=== PATIENT | female | born 1955 | race African-American/Black ===

== ENCOUNTER 2018-11-09 09:42 | Inpatient (IN) | payer MEDICAID ==
[~2018-11-09] VITALS: Ht 152.4 cm; Wt 75.3 kg
[2018-11-09] MEDS ORDERED: MORPHINE SULFATE 4 MG/ML CPJ (NOT FOR IM USE) IV STA (10:25)
[2018-11-09] MEDS ORDERED: ONDANSETRON HCL 4MG/2ML INJ IV STA (10:25)
[2018-11-09 10:54] LABS: BASOPHILS % 0.5 % (0.0-2.0); EOSINOPHILS % 1.6 % (0.0-5.0); HEMATOCRIT. 44.8 % (36.0-48.0); HEMOGLOBIN. 14.2 g/dL (12.0-16.0); LYMPHOCYTES % 22.9 % (20.0-50.0); MEAN CORPUSCULAR HEMOGLOBIN 25.3 pg (28.0-32.0); MEAN CORPUSCULAR VOLUME 79.9 fL (81.0-99.0); MEAN PLATELET VOLUME 8.4 fl (7.4-10.4); MONOCYTES % 5.7 % (2.0-8.0); NEUTROPHILS % 69.3 % (40.0-76.0); PLATELET 349 x1000/uL (130-400); RED BLOOD CELL COUNT 5.61 mill/uL (4.2-5.4); RED CELL DISTRIBUTION WIDTH 15.6 % (11.6-14.6)
[2018-11-09 10:57] LABS: CHLORIDE 95 mEq/L (98-107)
[2018-11-09 10:58] LABS: INR 1.1; PROTHROMBIN TIME 11.1 sec (9.6-11.0)
[2018-11-09] MEDS ORDERED: DIPHENHYDRAMINE 50MG CAPSULE PO ONE (11:00)
[2018-11-09] MEDS ORDERED: IOHEXOL-300 100 ML BOTTLE ONE (12:25)
[2018-11-09 14:09] LABS: CLARITY URINE CLEAR (CLEAR); COLOR URINE YELLOW (YELLOW); KETONES URINE TRACE (NEGATIVE); LEUKOCYTE ESTERASE URINE NEGATIVE (NEGATIVE); NITRITE URINE NEGATIVE (NEGATIVE); OCCULT BLOOD URINE NEGATIVE (NEGATIVE); PROTEIN URINE NEGATIVE (NEGATIVE); SPECIFIC GRAVITY URINE 1.062 (1.005-1.030); UROBILINOGEN URINE 0.2 E.U./dL (0.2-1.0)
[2018-11-09] MEDS ORDERED: ASPIRIN 325MG EC TABLET PO ONE (14:30)
[2018-11-09] MEDS ORDERED: MORPHINE SULFATE 4 MG/ML CPJ (NOT FOR IM USE) IV ONE (16:30)
[2018-11-09] MEDS ORDERED: ONDANSETRON HCL 4MG/2ML INJ IV ONE (16:30)
[2018-11-09] MEDS ORDERED: MORPHINE SULFATE 2 MG/ML CPJ (NOT FOR IM USE) IV PRN (18:30)
[2018-11-09 18:44] VITALS: BP 132/76
[2018-11-09] MEDS ORDERED: DEXTROSE 50% WATER 50ML SYRINGE IV PRN (19:15)
[2018-11-09 20:00] VITALS: BP 159/75
[2018-11-09] MEDS: FOLIC ACID 1 MG, THIAMINE HCL 100 MG, MVI, ADULT NO.1 10 ML in DEXTROSE 5% WATER 1,000 ML IV SCH ×4 (20:54)
[2018-11-09] MEDS: BLOOD SUGAR DIAGNOSTIC STRIP TEST SCH (20:55)
[2018-11-09] MEDS: INSULIN LISPRO 100 UNITS/ML SUBCUT SCH (20:56)
[2018-11-09] MEDS: MORPHINE SULFATE 2 MG/ML CPJ (NOT FOR IM USE) IV PRN (23:57)
[2018-11-10 00:30] VITALS: BP 178/73
[2018-11-10] MEDS: CLONIDINE 0.1MG TABLET PO PRN (01:04)
[2018-11-10] MEDS: MORPHINE SULFATE 2 MG/ML CPJ (NOT FOR IM USE) IV PRN ×3 (03:57→22:40)
[2018-11-10 04:00] VITALS: BP 183/74
[2018-11-10] MEDS: BLOOD SUGAR DIAGNOSTIC STRIP TEST SCH ×4 (06:37→21:10)
[2018-11-10] MEDS: INSULIN LISPRO 100 UNITS/ML SUBCUT SCH ×4 (06:37→21:00)
[2018-11-10] MEDS: ONDANSETRON HCL 4MG/2ML INJ IV PRN ×2 (06:37→21:54)
[2018-11-10 07:44] LABS: HEMATOCRIT 43.6 % (36.0-48.0); MEAN CORPUSCULAR HEMOGLOBIN 25.7 pg (28.0-32.0); PLATELET 321 x1000/uL (130-400); RED BLOOD CELL COUNT 5.45 mill/uL (4.2-5.4); RED CELL DISTRIBUTION WIDTH 15.5 % (11.6-14.6)
[2018-11-10 08:00] VITALS: BP 129/81
[2018-11-10] MEDS ORDERED: DEXT 5%/0.45% NACL KCL 10MEQ/L 1,000 ML IV SCH (08:00)
[2018-11-10] MEDS: METOPROLOL TARTRATE 50MG TABLET PO SCH ×2 (08:05→21:20)
[2018-11-10 08:12] LABS: CHLORIDE 96 mEq/L (98-107)
[2018-11-10] MEDS ORDERED: DEXTROSE 50% WATER 50ML SYRINGE IV PRN (08:15)
[2018-11-10 08:31] LABS: AMYLASE 89 IU/L (25-115)
[2018-11-10] MEDS: INSULIN GLARGINE UD 100 UNITS/ML SYR SUBCUT SCH ×2 (11:19→21:17)
[2018-11-10] MEDS ORDERED: BLOOD SUGAR DIAGNOSTIC STRIP TEST SCH (11:45)
[2018-11-10 12:00] VITALS: BP 167/82
[2018-11-10] MEDS: SODIUM CHLORIDE 0.9% 1,000 ML IV SCH ×2 (12:49→18:15)
[2018-11-10 13:41] LABS: *AMPHETAMINES SCREEN URINE NEGATIVE (NEGATIVE); *BARBITURATES SCREEN URINE NEGATIVE (NEGATIVE)
[2018-11-10 13:43] LABS: *COCAINE SCREEN URINE NEGATIVE (NEGATIVE); CANNABINOID URINE SCREEN NEGATIVE (NEGATIVE); METHADONE URINE SCREEN NEGATIVE (NEGATIVE); OPIATES URINE SCREEN PRESUMTIVE POSITIVE (NEGATIVE); PHENCYCLIDINE URINE SCREEN NEGATIVE (NEGATIVE)
[2018-11-10 13:53] LABS: *BENZODIAZEPINES SCREEN URINE NEGATIVE (NEGATIVE)
[2018-11-10 16:00] VITALS: BP 175/65
[2018-11-10 20:00] VITALS: BP 180/70
[2018-11-10] MEDS: FOLIC ACID 1 MG, THIAMINE HCL 100 MG, MVI, ADULT NO.1 10 ML in DEXTROSE 5% WATER 1,000 ML IV SCH ×4 (21:10)
[2018-11-10] MEDS ORDERED: METO-539 MT (22:51)
[2018-11-10] MEDS ORDERED: METF-815 MT (22:51)
[2018-11-10] MEDS ORDERED: CLON-457 MT (22:51)
[2018-11-10] MEDS ORDERED: DORZ10DR18 OP (22:51)
[2018-11-10] MEDS ORDERED: LATA7.5D OP (22:51)
[2018-11-11 00:18] VITALS: BP 146/85
[2018-11-11] MEDS ORDERED: DOCU-150 MT (03:10)
[2018-11-11] MEDS ORDERED: LISI1TAB9 MT (03:10)
[2018-11-11] MEDS ORDERED: ATOR40TA70 MT (03:10)
[2018-11-11] MEDS ORDERED: ASPI-986 MT (03:10)
[2018-11-11] MEDS ORDERED: ALBU18HF2 INH (03:10)
[2018-11-11] MEDS ORDERED: AMLO10TA80 MT (03:10)
[2018-11-11] MEDS ORDERED: GABA-531 MT (03:10)
[2018-11-11] MEDS ORDERED: MELO-106 MT (03:12)
[2018-11-11] MEDS ORDERED: PANT40TA4 MT (03:13)
[2018-11-11] MEDS: SODIUM CHLORIDE 0.9% 1,000 ML IV SCH ×2 (04:15→14:15)
[2018-11-11] MEDS: CLONIDINE 0.1MG TABLET PO PRN (04:19)
[2018-11-11 04:31] VITALS: BP 161/76
[2018-11-11] MEDS: BLOOD SUGAR DIAGNOSTIC STRIP TEST SCH ×4 (06:03→21:51)
[2018-11-11] MEDS: INSULIN LISPRO 100 UNITS/ML SUBCUT SCH ×4 (06:14→21:00)
[2018-11-11 07:18] LABS: BASOPHILS % 0.2 % (0.0-2.0); EOSINOPHILS % 1.4 % (0.0-5.0); HEMATOCRIT. 40.1 % (36.0-48.0); HEMOGLOBIN. 12.7 g/dL (12.0-16.0); LYMPHOCYTES % 14.4 % (20.0-50.0); MEAN CORPUSCULAR HEMOGLOBIN 25.5 pg (28.0-32.0); MEAN CORPUSCULAR VOLUME 80.4 fL (81.0-99.0); MONOCYTES % 8.9 % (2.0-8.0); NEUTROPHILS % 75.1 % (40.0-76.0); PLATELET 274 x1000/uL (130-400); RED BLOOD CELL COUNT 4.99 mill/uL (4.2-5.4); RED CELL DISTRIBUTION WIDTH 15.7 % (11.6-14.6)
[2018-11-11 07:35] LABS: CHLORIDE 98 mEq/L (98-107)
[2018-11-11 07:42] LABS: AMYLASE 43 IU/L (25-115)
[2018-11-11 08:00] VITALS: BP 117/66
[2018-11-11] MEDS: METOPROLOL TARTRATE 50MG TABLET PO SCH ×2 (09:48→21:54)
[2018-11-11] MEDS: INSULIN GLARGINE UD 100 UNITS/ML SYR SUBCUT SCH ×2 (09:50→22:00)
[2018-11-11 12:00] VITALS: BP 130/67
[2018-11-11 16:00] VITALS: BP 150/62
[2018-11-11 20:00] VITALS: BP 140/90
[2018-11-11] MEDS: FOLIC ACID 1 MG, THIAMINE HCL 100 MG, MVI, ADULT NO.1 10 ML in DEXTROSE 5% WATER 1,000 ML IV SCH ×4 (20:00)
[2018-11-12] VITALS: BP 124/52
[2018-11-12] MEDS: SODIUM CHLORIDE 0.9% 1,000 ML IV SCH ×2 (00:15→10:15)
[2018-11-12 04:00] VITALS: BP 119/63
[2018-11-12] MEDS: INSULIN LISPRO 100 UNITS/ML SUBCUT SCH ×3 (06:36→17:38)
[2018-11-12] MEDS: BLOOD SUGAR DIAGNOSTIC STRIP TEST SCH ×3 (06:36→17:26)
[2018-11-12 08:00] VITALS: BP_SYST 117; BP_SYST 194; BP_DIAS 63; BP_DIAS 66
[2018-11-12] MEDS: METOPROLOL TARTRATE 50MG TABLET PO SCH (09:12)
[2018-11-12] MEDS: INSULIN GLARGINE UD 100 UNITS/ML SYR SUBCUT SCH (09:22)
[2018-11-12 12:00] VITALS: BP 140/58
[2018-11-12 14:45] VITALS: BP 137/62
== END 2018-11-12 18:42 | disposition home or self-care (01) ==
LOC: ER 09:42 → 5WST 15:34 → ENRESERV 17:02 → 5WST 19:37
PROVIDERS: ADMIT Internal Medicine; ATTEND Internal Medicine
DX: K80.20 Calculus of gallbladder without cholecystitis without obstruction (principal); K85.10 Biliary acute pancreatitis without necrosis or infection; E87.8 Other disorders of electrolyte and fluid balance, not elsewhere classified; E87.1 Hypo-osmolality and hyponatremia; K74.60 Unspecified cirrhosis of liver; E66.9 Obesity, unspecified; I10 Essential (primary) hypertension; K76.0 Fatty (change of) liver, not elsewhere classified; E11.9 Type 2 diabetes mellitus without complications; Z71.3 Dietary counseling and surveillance; Z86.73 Personal history of transient ischemic attack (TIA), and cerebral infarction without residual deficits
CPT/HCPCS: 36415; 71045; 74177; 76705; 80048; 80305; 82150; 82962; 83605; 83880; 84484; 85027; 93005; 96374; 96375; 99285; C1893; J1815; J2270; J2405; J3411; J3490; J7030; J7070; Q0163; Q9967

== ENCOUNTER → 2023-03-22 | Day surgery (SDC) | payer MEDICAID ==
[~2023-03-22] VITALS: Ht 149.9 cm; Wt 61.2 kg
[~2023-03-22] MED LIST: ALBU18HF2 INH; AMLO10TA80 MT; ASPI-986 MT; ATOR40TA70 MT; BALANCED SALT IRRIG SOLN COMB1 500ML OP NR; CLON-493 MT; CYCLOPENTOLATE HCL 1% OPHTH DROPS 2ML RIGHTEYE SCH; DOCU-150 MT; DORZ10DR18 OP; FENTANYL CITRATE/PF 50MCG/ML 2ML VIAL ONE; GABA-532 MT; HYALURONATE SODIUM 10 MG/ML 0.55ML SYRINGE IO ONE; LATA7.5D OP; LISI1TAB9 MT; MELO-106 MT; METO-539 MT; MIDAZOLAM HCL 2 MG/2 ML VIAL ONE; PANT40TA51 MT; PHENYLEPHRINE HCL 10% OPHTH DROPS 5ML RIGHTEYE SCH; PROPOFOL 200MG/20ML VIAL IV ONE; SODIUM CHLORIDE 0.9% 1,000 ML IV SCH; TRIAMCINOLONE ACETONIDE 40MG/ML 1ML VIAL ONE; TROPICAMIDE 1% OPHTH DROPS 15ML RIGHTEYE SCH; TRYPAN BLUE 0.5 ML DISP.SYRIN IO ONE
== END | disposition home or self-care (01) ==
LOC: OR 06:37
PROVIDERS: ATTEND Ophthalmology
DX: E11.36 Type 2 diabetes mellitus with diabetic cataract (principal); E11.39 Type 2 diabetes mellitus with other diabetic ophthalmic complication; H25.89 Other age-related cataract; H40.89 Other specified glaucoma; I10 Essential (primary) hypertension; Z86.73 Personal history of transient ischemic attack (TIA), and cerebral infarction without residual deficits; Z79.84 Long term (current) use of oral hypoglycemic drugs; Z79.899 Other long term (current) drug therapy; Z79.82 Long term (current) use of aspirin; Z98.890 Other specified postprocedural states
CPT/HCPCS: 66982; 82962; 66170; J3010; J2250; J2704; J3301; J3490; V2632; Q9957